=== PATIENT | male | born 1990 | race Caucasian/White ===

== ENCOUNTER 2024-12-07 09:04 | Emergency (ER) | payer MEDICAID, SELFPAY ==
--- NOTE | 2024-12-07 09:21 | ED_ITS ---
HPI - URI/Sore Throat General Chief Complaint: Upper Respiratory Infection Stated Complaint: throat irritated Time Seen by Provider: 12/07/24 09:21 Source: patient Mode of arrival: ambulatory Limitations: no limitations History of Present Illness HPI Narrative: 34-year-old male presents with complaint of sore throat for 3 days. Reports that uvula is swollen and touching his tongue. No other symptoms. Had left over amoxicillin and took 1 tablet last night. All systems reviewed and negative except as noted above. Related Data Allergies Allergy/AdvReac Type Severity Reaction Status Date / Time No Known Allergies Allergy Verified 12/07/24 09:14 Review of Systems Review of Systems: CONSTITUTIONAL: Denies fever, chills, or sweats. EYES: Denies visual changes, redness, or discharge. ENT: Denies rhinorrhea, congestion, Reports sore throat with swollen uvula. Denies otalgia. CARDIOVASCULAR: Denies chest pain, palpitations, or edema. RESPIRATORY: Denies cough or dyspnea. GASTROINTESTINAL: Denies abdominal pain, nausea, vomiting, or diarrhea. GENITOURINARY: Denies dysuria or hematuria. SKIN: Denies rash or itching. MUSCULOSKELETAL: Denies back pain, joint pain, or myalgia. NEUROLOGIC: Denies headache, numbness, or weakness. PSYCHIATRIC: Denies anxiety or depression. All other systems reviewed are negative, except as documented in HPI. PMFSH Comments At time of signature, agree with nursing past medical, surgical, social and family history. There is no relevant family history pertinent to the presenting complaint. Exam Narrative: GENERAL: This is a well-nourished, well-developed patient, in no apparent distress. HEAD: normocephalic, atraumatic. EYES: PERRL. Sclera clear/white. Vision is grossly intact. EARS: External ears normal, auditory canals clear and without drainage, TMs normal without perforation. Hearing grossly intact. NOSE: External nose normal with no obvious nasal discharge, nares without redness, no rhinorrhea. THROAT: Mucous membranes moist, erythematous to posterior pharynx with swelling, uvula is erythematous and swollen. No exudates NECK: Neck supple, non-tender without lymphadenopathy, masses or thyromegaly. CARDIOVASCULAR: Regular rate and rhythm without murmurs, gallops, or rubs. RESPIRATORY: Clear to auscultation. Breath sounds equal bilaterally. No wheezes, rales, or rhonchi. SKIN: warm, Dry, intact with no suspicious lesions or rash, good texture and turgor. NEURO: awake, alert, and oriented to person, place and time. There were no obvious focal neurologic abnormalities. EXTREMITIES: No joint tenderness, effusion, or edema noted. Course Course Level of Care: Express Care Visit Vital Signs Vital signs: Vital Signs Temperature 36.0 C L 12/07/24 09:25 Pulse Rate 88 12/07/24 09:25 Respiratory Rate 18 12/07/24 09:25 Blood Pressure 116/92 H 12/07/24 09:25 Pulse Oximetry 100 12/07/24 09:25 Oxygen Delivery Room Air 12/07/24 09:25 Temperature 36.0 C L 12/07/24 09:25 Pulse Rate 88 12/07/24 09:25 Respiratory Rate 18 12/07/24 09:25 Blood Pressure 116/92 H 12/07/24 09:25 Pulse Oximetry 100 12/07/24 09:25 Oxygen Delivery Room Air 12/07/24 09:25 reviewed MDM - URI/Sore Throat MDM Narrative Medical decision making narrative: positive strep. Will treat with amoxicillin and Medrol Dosepak due to uvula swelling. No difficulty swallowing. Patient is well-appearing, nontoxic. Please be advised this is a medical document. It is intended for [id number] communication. It is written in medical language and may contain unfamiliar abbreviations or verbiage. Medical documents are intended to carry relevant information, facts as evident, and the clinical opinion of the practitioner at the time of the encounter. This report may have been done utilizing a voice recognition system. Attempts have been made to correct errors. However, there may be uncorrected grammatical, spelling, and recognition errors present. The file time of this note does not necessarily represent the time of service. Lab Data Labs: Lab Results 12/07/24 Range/Units 09:29 POC Grp A Strep Screen Positive (Negative) Discharge Plan Discharge Clinical Impression: Strep throat Patient Disposition: Home Condition: Stable Instructions: Antibiotic Form, Strep Throat (ED) Additional Instructions: your strep test was positive today. Take antibiotic as prescribed until gone. Change toothbrush after taking antibiotic for 24-48 hours. Take ibuprofen or Tylenol every 6-8 hours as needed for pain. Drink plenty of water and rest. Follow-up with your doctor if symptoms are not improving. Patient Language: Syriac Prescriptions: New amoxicillin 500 mg tablet 500 mg PO Q12H 10 Days Qty: 20 0RF methylprednisolone [Medrol (Osei)] 4 mg tablets,dose pack See Rx Instructions PO .COMPLEX Qty: 21 0RF Rx Instructions: orally per package directions Follow-up/Referrals: PHYSICIAN,CAMER[employer]YPING ENGINEER [Primary Care Provider] - Time of Disposition: 09:35
[2024-12-07 09:25] VITALS: BP 116/92; PULSE 88; RESP 18; TEMP 36; O2SAT 100
[2024-12-07 09:31] LABS: EDSTREPNEGPOS1 Positive (Negative)
== END 2024-12-07 09:40 | disposition home or self-care (01) ==
PROVIDERS: Emergency Provider Nurse Practitioner Family
DX: J02.0 Streptococcal pharyngitis (principal)
CPT/HCPCS: 87880; 99203; G0463